=== PATIENT | female | born 1945 | race Caucasian/White ===

== ENCOUNTER → 2019-04-20 | Outpatient (CLI) | payer MEDICARE, OTHER ==
[~2019-04-20] MED LIST: ASPIR 8181 M1 PO; AUGMENTIN 875875 MG PO; CALCIUM500 MG PO; HYDROCHLOROTHIA25 M2 PO; HYDROCODONE-AP1 EAC6 PO; IBUPROFEN 800800 M1 PO; UNICOMPLEX M TA1 TA1 PO
--- NOTE | 2019-04-21 11:38 | TST ---
[place] [address] TREADMILL STRESS TEST Name: ARCHANA YOU Room: [facility]#: [id number] Admission: 04/20/19 Attend Phys: Sergey Raphael, Discharge: Date of : 47 Date of Service: 04/20/19 1619 Report #: [id number] THIS REPORT FOR: //name// CC: Sergey Raphael DO DATE OF SERVICE: 04/20/2019 TREADMILL EXERCISE TEST Resting 12-lead electrocardiogram demonstrates sinus rhythm and is within normal limits. The patient exercised for 6 minutes according to a standard Sergey protocol. She noticed chest discomfort during stage 1, which resolved quickly after completion of exercise. Resting heart rate was 68 with a peak heart rate of 150. Blood pressure is 137/70 initially, increasing to 201/71 during exercise and falling to 165/75 during the post-exercise phase. There are ST-T alterations suggestive of ischemia with 3 mm of flat to slightly downsloping ST-segment depression during stage 1 and 3.5-4 mm of flat to slightly downsloping inferior and anterolateral ST segment depression in stage 2 and in the immediate recovery phase. The ST-T alterations resolved very gradually during the post-exercise phase. IMPRESSION: 1. Positive treadmill exercise test by electrocardiographic criteria for ischemia with approximately 3 mm of flat to slightly downsloping inferior and anterolateral ST-segment depression during stage 1 and 3.5-4 mm of flat to slightly downsloping ST-segment depression during stage 2 of the Sergey protocol. 2. Chest pressure noted during exercise, which remitted promptly during the post-exercise phase. 3. Appropriate heart rate and systolic blood pressure responses to exercise. 4. Occasional isolated premature ventricular contractions were noted; there were no complex arrhythmias. 5. Satisfactory level of fitness. <ELECTRONICALLY SIGNED> By: Kahlil Fabian MD, FACC 04/21/19 1138 1619 2330 Kahlil Fabian MD, FACC /nt
== END ==
LOC: M.CRD 14:35
DX: R07.89 Other chest pain (principal)

== ENCOUNTER → 2021-02-09 | Outpatient (CLI) | payer MEDICARE, OTHER ==
[~2021-02-09] MED LIST changes: +ALLEGRA ALLERG180 MG PO; +CRESTOR40 MG PO; +GLUCOSAMINE-CH1 EACH PO; +NEURONTIN100 MG PO
== END ==
LOC: M.LAB 05:19
PROVIDERS: ATTEND Anesthesiology
DX: E87.6 Hypokalemia (principal)

== ENCOUNTER → 2021-02-24 | Outpatient (CLI) | payer MEDICARE, OTHER ==
[~2021-02-24] VITALS: Ht 172.7 cm; Wt 83.9 kg
[2021-02-24 10:53] LABS: ABSOLUTE EOSINOPHILS 0.2 thou/uL (0.0-0.7); ABSOLUTE LYMPHOCYTES 1.5 thou/uL (0.8-5.3); ABSOLUTE MONOCYTES 0.6 thou/uL (0.0-1.2); BASOPHILS 0.8 %; EOSINOPHILS 3.6 %; HEMATOCRIT 35.2 % (37.0-47.0); MCH 29.5 pg (26.0-34.0); MCHC 34.1 g/dL (28.0-37.0); MCV 86.3 fL (80.0-100.0); MONOCYTES 9.2 %; MPV 6.2 fl. (7.2-11.1); NUCLEATED RBCS 0 /100WBC; PLATELET COUNT* 275 thou/uL (150-400); POLYS 62.4 %; RBC 4.08 mil/uL (4.20-5.00); RDW-CV 13.6 % (10.5-14.5); WBC 6.4 thou/uL (4.0-11.0)
[2021-02-24 11:02] LABS: ALBUMIN 3.4 g/dL (3.4-5.0); APTT 24.5 Seconds (25.0-31.3); CREATININE 0.8 mg/dL (0.6-1.3); INR 0.9; POTASSIUM 4.3 mmol/L (3.5-5.1); TOTAL BILIRUBIN 0.3 mg/dL (<0.1-1.0); TOTAL PROTEIN 6.9 g/dL (6.4-8.2)
--- NOTE | 2021-02-24 11:16 | EKG ---
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
[2021-02-24 12:31] LABS: ESR (SEDRATE) 12 mm/hr (0-30)
== END ==
LOC: M.LAB 10:31
PROVIDERS: ATTEND Orthopaedic Surgery
DX: M17.11 Unilateral primary osteoarthritis, right knee (principal)

== ENCOUNTER 2021-03-02 07:13 | Inpatient (IN) | payer MEDICARE, OTHER ==
[~2021-03-02] VITALS: Ht 172.7 cm; Wt 83.9 kg
--- NOTE | ~2021-03-02 | OP ---
[address] [address] OPERATIVE REPORT Name: ARCHANA YOU Room: [address] M.R.#: [id number] Admission: 03/02/21 Attend Phys: Roxi Schafer Discharge: Date of : 47 Report #: [id number] THIS REPORT FOR: cc: Elad Gaffney MD, Kandice L. MD Dugan, David W. DO ~ DOC #: [id number] Elias Tinajero DO DATE OF SURGERY: 03/02/2021 PREOPERATIVE DIAGNOSIS: Right knee degenerative joint disease. POSTOPERATIVE DIAGNOSIS: Right knee degenerative joint disease. PROCEDURE: Right total knee arthroplasty. IMPLANTS: Marc Persona total knee with the following components: 1. A size 10 narrow cemented femur. 2. A size E natural tibial baseplate. 3. A 10 mm medial congruent articular spacer. 4. A 32 mm all poly patella. 5. Two bags of Biomet cement. SURGEON: Juan A Briceno DO. ASSISTANTS: 1. Elias Tinajero DO. 2. Jonatan Kohli DO ANESTHESIA: Spinal and a regional block by anesthesia. FLUIDS: Crystalloid per anesthesia. ESTIMATED BLOOD LOSS: 100 mL DRAINS: None. SPECIMENS: None. COMPLICATIONS: None. CONDITION: Stable to PACU. DISPOSITION: Recovery in the PACU and transferred to the floor. ANTIBIOTICS: 2 grams Ancef IV preop. [address] [place] [address] OPERATIVE REPORT Name: ARCHANA YOU Room: [address] [facility]#: [id number] Admission: 03/02/21 Attend Phys: Roxi Schafer Discharge: Date of : 47 Report #: [id number] TOURNIQUET TIME: Approximately 50 minutes at 300 mmHg. INDICATIONS FOR PROCEDURE: The patient is a very pleasant 75-year-old female who presented to our clinic with longstanding right knee pain. She had a clinical and x-ray findings consistent with severe DJD. She failed conservative measures. We discussed total knee arthroplasty. The risks, benefits, alternatives and possible complications were discussed at length and she was agreeable to proceed. DESCRIPTION OF PROCEDURE: The patient was met in the preoperative area. Consent was obtained both verbally and written. The correct site was marked. She was transferred to the operative suite and given the benefit of a spinal anesthetic by the anesthesia team. She was then placed in the supine position and secured to the table. Bony prominences were well padded. A nonsterile well-padded tourniquet was applied to the right upper thigh. The right lower extremity was then prepped and draped in the usual sterile fashion. A timeout was performed to verify the correct patient, procedure, and operative site. All in the room were in agreement. The procedure began by elevation of the tourniquet to 300 mmHg. We started with a midline anterior incision down to the level of the capsule, followed by a medial parapatellar arthrotomy. We then everted the patella. We used the drill to gain access to the intramedullary canal of the femur. The distal femoral guide was inserted at 4 degrees of valgus with a 2 mm extra distal cut given a flexion contracture. The cutting block was pinned into place and distal femoral cut was made without difficulty. We then used the AP sizer to size the femur. We drilled two holes in 3 degrees of external rotation, referencing the transepicondylar axis. We then placed the appropriate cutting block and malleted this into place. We secured it with 2 pins and made our anterior, posterior and chamfer cuts. Residual bone was removed. We then turned our attention to the proximal tibial cut. The extramedullary guide was lined up with the center of the tibial plateau, medial 1/3 of the tibial tubercle down the tibial crest and center of the ankle. We dialed in the appropriate posterior slope and coronal alignment. We referenced 2 mm off the most effective medial side. We pinned our cutting block into place and made the proximal tibial cut without difficulty. We then resected the remainder of the PCL and menisci. We then ensured that we had adequate resection with a 10 spacer block. We then placed the trial tibia and secured this into place with the appropriate rotation. We placed the trial femur. We placed a 10 mm trial articular spacer. The knee was taken through range of motion and had excellent range of motion from 0-130 degrees with good stability throughout mid flexion and deep flexion. We then cut the patella in a freehand fashion. Three peg holes were drilled. The trial patella tracked well. The 2 peg holes were drilled in the femur for the final femoral component. We then reamed and punched in preparation for the tibial keel. Trial components were then removed. The bony ends were then thoroughly irrigated. Cement was mixed [address] [address] OPERATIVE REPORT Name: ARCHANA YOU Room: [address] [facility] IN [facility]#: [id number] Admission: 03/02/21 Attend Phys: Roxi Schafer Discharge: Date of : 47 Report #: [id number] on the back table and final components were thrown on to the back table. Cement was placed on the backside of the final components and also onto the bony ends and pressed into the interstices. Final components were malleted and secured into place. Excess cement was removed. We compressed with a 12 mm articular trial spacer. We then allowed the cement to cure. Once this was done, we elected to proceed with a 10 mm final spacer. The tibia was thoroughly cleansed with saline and a clean lap. Final articular spacer was secured into place with a palpable and audible click. The knee was taken through range of motion and she was found to have excellent stability and range of motion from 0-130 degrees. It was stable throughout mid flexion and deep flexion. The tourniquet was let down at this point and hemostasis was obtained with electrocautery. We injected the pericapsular tissue with our orthopedic pain cocktail. The capsule was then closed with #1 Vicryl in [id number] fashion and oversewn with #1 Stratafix suture. The subcutaneous tissue was closed with 2-0 Vicryl suture. We then ran a 3-0 Stratafix subcuticular. Surgical glue was placed on the skin and allowed to dry, followed by a sterile Mepilex dressing. The patient tolerated the procedure well and was transferred to the PACU in stable condition without complication. Needle and sponge counts were correct x 2 at the end of the case. Dr. Briceno was present and scrubbed throughout all critical aspects of the case. Juan A Briceno, DO [facility] By: [id number] Eunice Briceno DO /jeff
[2021-03-02 10:22] VITALS: BP 129/61
[2021-03-02 18:03] VITALS: BP 126/68
[2021-03-02 20:49] VITALS: BP 144/57
[2021-03-03 01:30] VITALS: BP 129/48
[2021-03-03 03:51] LABS: HEMATOCRIT 31.2 % (37.0-47.0); HEMOGLOBIN 10.7 gm/dL (12.0-15.0)
[2021-03-03 06:21] VITALS: BP 141/43
[2021-03-03 08:00] VITALS: BP 125/49
[2021-03-03 11:19] VITALS: BP 141/43
[2021-03-03 20:38] VITALS: BP 119/41
[2021-03-04 05:14] LABS: HEMATOCRIT 28.6 % (37.0-47.0)
[2021-03-04 08:00] VITALS: BP 109/42
[2021-03-04] MEDS ORDERED: ELIQUIS5 MG PO (12:39)
[2021-03-04] MEDS ORDERED: OXYCODONE HCL 55 MG PO (12:39)
[2021-03-04 14:10] VITALS: BP 141/43
[2021-03-04 15:46] VITALS: BP 133/45
[2021-03-04 17:25] VITALS: BP 141/43
== END 2021-03-04 18:49 | disposition home or self-care (01) | DRG 470 ==
LOC: M.ORTHSURG → M.TBA 09:28 → M.ORTHSURG 10:39 → M.TBA 14:16 → M.ORTHSURG 17:11
PROVIDERS: Orthopaedic Surgery; ADMIT Internal Medicine; ATTEND Internal Medicine
PROC: 3E0T3BZ Introduction of Anesthetic Agent into Peripheral Nerves and Plexi, Percutaneous Approach (ICD-10-PCS; principal; 2021-03-02)
PROC: 0SRC0J9 Replacement of Right Knee Joint with Synthetic Substitute, Cemented, Open Approach (ICD-10-PCS; principal; 2021-03-02)
DX: M17.11 Unilateral primary osteoarthritis, right knee (principal); I10 Essential (primary) hypertension; E78.5 Hyperlipidemia, unspecified; I25.10 Atherosclerotic heart disease of native coronary artery without angina pectoris; D64.9 Anemia, unspecified; K57.90 Diverticulosis of intestine, part unspecified, without perforation or abscess without bleeding; Z88.1 Allergy status to other antibiotic agents; Z88.8 Allergy status to other drugs, medicaments and biological substances; Z79.82 Long term (current) use of aspirin; Z79.899 Other long term (current) drug therapy; Z98.42 Cataract extraction status, left eye; Z98.41 Cataract extraction status, right eye; Z95.5 Presence of coronary angioplasty implant and graft